=== PATIENT | male | born 1975 | race Two or more races ===

== ENCOUNTER 2023-06-01 18:09 | Inpatient (IN) | payer BC ==
[~2023-06-01] VITALS: Ht 182.9 cm; Wt 80.0 kg
[2023-06-01 18:48] LABS: BASOPHILS # (AUTO) 0.1 X10'3 (0-0.2); BASOPHILS % (AUTO) 1.1 % (0-1); EOSINOPHILS # (AUTO) 0.3 X10'3 (0-0.9); EOSINOPHILS % (AUTO) 4.4 % (0-6); HEMATOCRIT 45.6 % (42.0-52.0); HEMOGLOBIN 15.6 g/dl (14.0-17.9); LYMPHOCYTES # (AUTO) 2.4 X10'3 (1.1-4.8); LYMPHOCYTES % (AUTO) 32.6 % (21-51); MEAN CORPUSCULAR HEMOGLOBIN 30.4 PG (27.0-31.0); MEAN CORPUSCULAR HGB CONC 34.1 g/dL (33.0-36.5); MEAN CORPUSCULAR VOLUME 89.1 FL (78-98); MEAN PLATELET VOLUME 7.9 FL (7.4-10.4); MONOCYTES # (AUTO) 0.6 X10'3 (0-0.9); NEUTROPHILS # (AUTO) 3.9 X10'3 (1.8-7.7); NEUTROPHILS % (AUTO) 53.9 % (42-75); PLATELET COUNT 294 X10'3 (140-440); RED BLOOD COUNT 5.12 X10'6 (4.70-6.10); RED CELL DISTRIBUTION WIDTH 13.8 % (11.5-14.5); WHITE BLOOD COUNT 7.3 X10'3 (4.5-11.0)
[2023-06-01 19:06] LABS: ALANINE AMINOTRANSFERASE 41 U/L (12-78); ALBUMIN 3.9 G/DL (3.4-5.0); ALKALINE PHOSPHATASE 86 IU/L (46-116); ANION GAP 6 (8-16); ASPARTATE AMINO TRANSFERASE 20 U/L (10-37); BILIRUBIN,TOTAL 0.7 MG/DL (0.1-1.0); BLOOD UREA NITROGEN 12 MG/DL (7-18); BUN/CREATININE RATIO 12.5 (10.0-20.0); CALCIUM 8.9 MG/DL (8.5-10.1); CHLORIDE 103 MMOL/L (99-107); CREATININE 0.96 MG/DL (0.60-1.10); GLUCOSE 103 MG/DL (70-104); POTASSIUM 3.6 MMOL/L (3.5-5.1); SODIUM 140 MMOL/L (135-145); TOTAL CARBON DIOXIDE 31.2 MMOL/L (24-32); TOTAL PROTEIN 7.9 G/DL (6.4-8.2); eCRCL 103 ML/MIN; eGFR 84 ML/MIN
[2023-06-01 19:14] LABS: PRO BRAIN NATRIURETIC PEPTIDE 42 PG/ML (0-125)
[2023-06-01] MEDS ORDERED: aspirin 81mg tab.chew PO ONE ×2 (20:35→20:45)
[2023-06-01] MEDS ORDERED: normal saline 1000ml 1,000 ML IV ONE (20:45)
[2023-06-01] MEDS ORDERED: nitroGLYCERIN 0.2mg/hour patch TD ONE (20:45)
[2023-06-01] MEDS ORDERED: normal saline 1000ML IV soln IVB ONE (20:45)
[2023-06-01 20:58] LABS: MAGNESIUM 2.3 MG/DL (1.5-2.4)
[2023-06-01] MEDS ORDERED: LORazepam 1 MG tablet PO ONE ×2 (21:05→21:10)
[2023-06-01 21:17] LABS: APTT 28 SECONDS (22-32)
[2023-06-01] MEDS ORDERED: iohexol 350MG/ML 100ml bottle IV ONE (23:15)
[2023-06-02] MEDS ORDERED: ATOR-2 PO (11:19)
[2023-06-02] MEDS ORDERED: METO-395 PO (11:19)
[2023-06-02] MEDS ORDERED: PERFLUTREN PROTEIN-A MICROSPHR (Optison) 0.22 MG/ML 3ML VIAL IV ONE (14:35)
[2023-06-02 15:00] VITALS: BP 132/69; PULSE 69; RESP 18; TEMP 98.3; O2SAT 99
[2023-06-02] MEDS ORDERED: acetaminophen 325mg tablet PO PRN (15:20)
[2023-06-02] MEDS ORDERED: iohexol 350MG/ML 100ml bottle IV ONE (15:20)
[2023-06-02 16:00] VITALS: RESP 14; O2SAT 99
[2023-06-02] MEDS ORDERED: ASPI-1265 PO (16:04)
[2023-06-02] MEDS ORDERED: GADOTERATE MEGLUMINE 7.5 MMOL/15 ML VIAL IV ONE (16:32)
[2023-06-02 19:00] VITALS: RESP 16; O2SAT 98
[2023-06-02] MEDS ORDERED: atorvastatin 20mg tablet PO SCH (20:00)
[2023-06-02] MEDS ORDERED: aspirin 81mg, enteric-coated 1 TAB TABLET.DR PO SCH (20:00)
[2023-06-02] MEDS ORDERED: metoprolol succinate 25mg (24-HOUR) SR. Tablet PO SCH (20:00)
[2023-06-02 21:00] VITALS: BP 113/71; PULSE 69; RESP 16; TEMP 98.7; O2SAT 99
[2023-06-03 06:00] VITALS: BP 108/72; PULSE 57; RESP 20; TEMP 97.7; O2SAT 97
[2023-06-03 08:00] VITALS: RESP 20; O2SAT 97
[2023-06-03] MEDS ORDERED: atorvastatin 20mg tablet PO SCH (21:00)
== END 2023-06-03 12:36 | disposition home or self-care (01) | DRG 93 ==
LOC: ER 18:10 → ED HOLD 23:53 → PCU 3S 06-02 15:01
PROVIDERS: ADMIT Internal Medicine; ATTEND Family Medicine
PROC: B32T1ZZ Computerized Tomography (CT Scan) of Left Pulmonary Artery using Low Osmolar Contrast (ICD-10-PCS; principal; 2023-06-01)
PROC: B3201ZZ Computerized Tomography (CT Scan) of Thoracic Aorta using Low Osmolar Contrast (ICD-10-PCS; 2023-06-01)
PROC: B32S1ZZ Computerized Tomography (CT Scan) of Right Pulmonary Artery using Low Osmolar Contrast (ICD-10-PCS; 2023-06-01)
PROC: B3251ZZ Computerized Tomography (CT Scan) of Bilateral Common Carotid Arteries using Low Osmolar Contrast (ICD-10-PCS; 2023-06-02)
PROC: B32G1ZZ Computerized Tomography (CT Scan) of Bilateral Vertebral Arteries using Low Osmolar Contrast (ICD-10-PCS; 2023-06-02)
PROC: B32R1ZZ Computerized Tomography (CT Scan) of Intracranial Arteries using Low Osmolar Contrast (ICD-10-PCS; 2023-06-02)
PROC: B3281ZZ Computerized Tomography (CT Scan) of Bilateral Internal Carotid Arteries using Low Osmolar Contrast (ICD-10-PCS; 2023-06-02)
DX: R20.0 Anesthesia of skin (principal); E78.00 Pure hypercholesterolemia, unspecified; I25.10 Atherosclerotic heart disease of native coronary artery without angina pectoris; F41.9 Anxiety disorder, unspecified; N18.2 Chronic kidney disease, stage 2 (mild); G62.9 Polyneuropathy, unspecified; I25.2 Old myocardial infarction; Z95.5 Presence of coronary angioplasty implant and graft
CPT/HCPCS: 36415; 70450; 70496; 70498; 70553; 71045; 72141; 72146; 72148; 80053; 82607; 83735; 83880; 84443; 84484; 85025; 85610; 85730; 87081; 93005; 93306; 99285; A9575; G0378; J3490; J7030; Q9967